=== PATIENT | female | born 1960 | race Caucasian/White ===

== ENCOUNTER 2025-03-22 16:08 | Emergency (ER) | payer OTHER, SELFPAY ==
[2025-03-22 16:30] VITALS: BP 161/82; BMI 32.4
--- NOTE | 2025-03-22 17:41 | ED.GENMED ---
History of Present Illness
General
Chief Complaint: Crisis Evaluation
Time Seen by Provider: 03/22/25 16:10
History of Present Illness
History of Present Illness:
64-year-old female with history of anxiety and Parkinson's presenting for increasing anxiety and SI. Patient presents from her primary care office. Notes that she did Ativan for anxiety, however as of recent has been more anxious. Denies any
intention or plan for self-harm. Notes that she does not currently have a neurologist. She does not currently have a psychiatrist. No additional history reported at this time
Phy Exam
Physical Exam
Physical Exam:
General: Well-appearing, no clinical signs of dehydration, nontoxic and in no acute distress
HEENT: protecting airway
Neck: appears supple
CV: Normal heart rate
Resp: No accessory muscle use, no increased work of breathing
Abd: No distention
Extremities: No deformities, no swelling
Neuro: alert, no focal neurologic deficit
: deferred
Rectal: deferred
Psych: Normal affect
Skin: Intact
Course
Orders/Labs/Results
Orders:
Orders
03/22/25 16:22
Crisis Consult Urgent
Reason for Consult: depression
Vital Signs
Initial and Last Documented VS:
Initial Vital Signs
Temp Pulse Resp BP Pulse Ox
97.6 F 86 20 161/82 98
03/22/25 16:30 03/22/25 16:30 03/22/25 16:30 03/22/25 16:30 03/22/25 16:30
Last Documented Vital Signs
Temp Pulse Resp BP Pulse Ox
97.6 F 86 20 161/82 98
03/22/25 16:30 03/22/25 16:30 03/22/25 16:30 03/22/25 16:30 03/22/25 16:30
MDM/Problems Addressed
MDM/Problems Addressed:
64-year-old female with history of anxiety and Parkinson's presenting for increasing anxiety and SI. Vital signs are normal
On exam, patient is resting comfortably, no acute distress. Denies any present plan or specific suicidal thoughts. Does not presently appear to be a threat to herself or others. Patient notes that she has a prescription for lorazepam, which is
directed to be taken twice daily, however is only taking it once daily. I advised trying it twice daily for anxiety. Crisis to evaluate, however at this time no indication for 302.
Crisis advises outpatient resources, partial program. Patient would like me to call her social work job titles. Will call and update. Otherwise stable for discharge with outpatient psychiatric therapy
*Pulse Oximetry
SaO2: 98
Oxygen Mode of Delivery: Room air
Patient hypoxic: no
*Critical Care Note
Total Time (30-74mins, 75-104mins- exclusive of procedures): Not Applicable
ED Attending Note
-
Portions of this chart may have been created with voice recognition software.� Occasional wrong word or��sound alike� substitutions may have occurred due to the inherent limitations of voice recognition software.
Discharge Plan
Departure
Prescriptions:
No Action
primidone 50 mg tablet
25 mg PO BID@0800,1600
carbidopa-levodopa 25-100 mg tablet extended release
1 tab PO QID
carbidopa-levodopa 25-100 mg tablet extended release
1 tab PO QIDPRN PRN (Reason: movement disorder)
ropinirole 3 mg tablet
3 mg PO TID
venlafaxine 150 mg capsule,extended release 24hr
150 mg PO DAILY
ropinirole 2 mg tablet
2 mg PO TID
carbidopa-levodopa 25-100 mg tablet
1 tab PO HS
ropinirole 4 mg tablet
4 mg PO QID
rasagiline 1 mg tablet
1 mg PO DAILY
temazepam 30 mg capsule
30 mg PO HS
lorazepam 1 mg tablet
1 mg PO BID
Referrals:
Jose A Krause MD [Family Provider, Internal Medicine]
Interventions
Interventions:
*Risk Screen - Suicide Last Done: 03/22/25 16:30
*General Assessment Last Done: 03/22/25 16:30
*Neglect/Abuse Screening Last Done: 03/22/25 16:30
*ED- Fall Risk Assessment Last Done: 03/22/25 16:30
*ED COVID-19 Vaccine History Last Done: 03/22/25 16:30
*ED Influenza Vaccine History Last Done: 03/22/25 16:30
ED-Psychological Assessment Last Done: 03/22/25 16:30
Discharge Date and Time
Print Language: CUBAN
--- NOTE | 2025-03-22 18:47 | EDRN ---
the pt was cleared by Dr. Jimenez and the pt was cleared by fady and the pt was given outpatient resources, the pt stated that she called her daughter to come and pick her up however per the pt the pt stated that her daughter and her do not agree
with discharge and the pt and the pts daughter believe that the pt should go to a psychiatric facility, this RN obtained the pts daughters information, the pts daughters name is Anisha Mathis and her number is [phone] and Peter from [facility] is
speaking with the pts daughter currently
--- NOTE | 2025-03-22 18:57 | EDRN ---
the pt was able to get herself dressed and is laying in stretcher bed in the lowest position, side rails up, HOB elevated, no s/s of distress, per crisis another crisis consult will be placed
--- NOTE | 2025-03-22 18:59 | EDRN ---
this RN attempted to call the pts daughter and the phone was , this RN notified crisis
== END 2025-03-22 19:38 | disposition home or self-care (01) ==
LOC: EMR 16:08
PROVIDERS: EMERGENCY PHYSICIAN Student in an Organized Health Care Education/Training Program; FAMILY PHYSICIAN Internal Medicine
DX: F41.9 Anxiety disorder, unspecified (principal); R45.851 Suicidal ideations; F32.A Depression, unspecified; G20.A1 Parkinson's disease without dyskinesia, without mention of fluctuations; T42.4X6A Underdosing of benzodiazepines, initial encounter; Z91.148 Patient's other noncompliance with medication regimen for other reason
CPT/HCPCS: 99283